=== PATIENT | male | born 1970 | race African-American/Black ===

== ENCOUNTER 2019-12-07 15:42 | Inpatient (IN) | payer OTHER ==
[~2019-12-07] VITALS: Ht 198.1 cm; Wt 161.5 kg
--- NOTE | ~2019-12-07 | HC ---
[facility] [place] [address] CONSULTATION Name: TERRIE GRACIA Room #: 448-P ADM IN M.R.#: [id number] Admission: 12/07/19 Attend Phys: Doug Kuhn MD Discharge: Date of : 70 Report #: [id number] THIS REPORT FOR: cc: JOANNE - Sylvia family physician/PCP JOANNE - Sylvia family physician/PCP Tomeka Cooper MD ~ CC: [facility] physician/PCP Doug Kuhn DATE OF SERVICE: 12/14/2019 RENAL CONSULTATION REASON FOR CONSULTATION: Acute kidney injury. REASON FOR PRESENTATION: Bilateral lower extremity swelling and drainage. HISTORY OF PRESENT ILLNESS: This is a 49-year-old who denies any previous knowledge of any medical issues. He does not see any physicians. He presented with increasing bilateral lower extremity swelling, foul smelling discharge. He has not been seen for this before. He denies any prior treatment. He has a normal creatinine on presentation with a creatinine value of 0.9. He received an angiogram on the , a venogram on the . This has resulted in a significant contrast exposure with the creatinine peaking at 2.2 mandating a Nephrology consultation. No UA is available. PAST MEDICAL HISTORY: He denies any prior medical history. PAST SURGICAL HISTORY: He denies any. FAMILY HISTORY: No known chronic kidney disease. ALLERGIES: None. SOCIAL HISTORY: He lives with his . No drug or alcohol abuse. MEDICATIONS: None. REVIEW OF SYSTEMS: GENERAL: No fever or chills. CARDIOVASCULAR: No chest pain or palpitation. PULMONARY: No cough or hemoptysis. GASTROINTESTINAL: No nausea or vomiting. GENITOURINARY: No frequency, no urgency. MUSCULOSKELETAL: As per the history of present illness. NEUROLOGICAL: No headache, no dizziness. [facility] [address] [place] [address] CONSULTATION Name: TERRIE GRACIA Phoebe Room #: 448-P [facility] IN .R.#: [id number] Admission: 12/07/19 Attend Phys: Doug Kuhn MD Discharge: Date of : 70 Report #: [id number] SKIN: As per the history of present illness. PHYSICAL EXAMINATION: VITAL SIGNS: Temperature 37.1, pulse rate is 80, blood pressure is 146/93. HEAD AND NECK: No jugular venous distention, no bruit, no thyromegaly. CHEST: Clear to auscultation bilaterally. CARDIOVASCULAR: No rub detected. ABDOMEN: Soft, nontender. LOWER EXTREMITIES: Extensive bilateral lower extremity lymphedema. Dressing applied bilaterally. I did not expose his dressing. LABORATORY VALUES: Sodium , potassium 4, BUN of 11, creatinine of 2.2. White blood cell count 5.0, hemoglobin 9.2, platelets 316. ASSESSMENT, IMPRESSION AND PLAN: 1. Acute kidney injury due to contrast exposure. 2. Bilateral lower extremity cellulitis. 3. The patient's creatinine had stabilized around 2.2. I am hoping to start to see some improvement in his renal function in the next day or so. 4. Avoid further contrast. 5. Avoid nephrotoxins. 6. Adjust medications to the current GFR. 7. Currently, the patient is followed by ID, wound care. Continue with the wound care and antibiotic accordingly. By: 0911 0930 Tomeka Cooper MD /nt
[2019-12-07 15:51] VITALS: BP 142/86
[2019-12-07 17:43] LABS: HEMATOCRIT 28.5 % (42.0-52.0); HEMOGLOBIN 9.7 gm/dL (14.0-18.0); MCH 30.3 pg (26.0-34.0); MCHC 34.2 g/dL (28.0-37.0); MCV 88.6 fL (80.0-100.0); PLATELET COUNT 272 thou/uL (150-400); RBC 3.22 mil/uL (4.50-6.00); RDW 15.8 % (10.5-14.5); WBC 4.5 thou/uL (4.0-11.0)
--- NOTE | 2019-12-07 17:46 | NUR ---
VASCULAR ACCESS CONSULTED FOR MIDLINE. PT'S HISTORY OBTAINED. DISCUSSED BENEFITS AND RISK WITH PT, VERBALIZED UNDERSTANDING.GAVE VERBAL CONSENT. KRYS BRACHIAL WAS WIDELY PATENET WITH USG. 4FR POWER MIDLINE TRIMMED TO 12CM INSERTED TO 0CM. LABS OBTAINED.PT TOLERATED WELL. RELEASED FOR IMMEDIATE USE PER PROTOCOL.
[2019-12-07 17:58] LABS: CALCIUM 7.7 mg/dL (8.5-10.1); CREATININE 0.9 mg/dL (0.7-1.3); POTASSIUM 3.4 mmol/L (3.5-5.1)
[2019-12-07 18:03] LABS: TOTAL BILIRUBIN 0.6 mg/dL (0.2-1.0); TOTAL PROTEIN 7.7 g/dL (6.4-8.2)
[2019-12-07 18:26] LABS: ABSOLUTE NEUTROPHILS 3.3 thou/uL (1.4-8.2)
--- NOTE | 2019-12-07 20:09 | NUR ---
FIRST ATTEMPT AT REPORT CALLED
[2019-12-07 20:38] VITALS: BP 132/95
[2019-12-07 21:01] VITALS: BP 121/78
[2019-12-07 21:15] VITALS: BP 129/89
[2019-12-08 03:20] LABS: HEMATOCRIT 31.2 % (42.0-52.0); HEMOGLOBIN 10.2 gm/dL (14.0-18.0); MCH 29.3 pg (26.0-34.0); MCHC 32.6 g/dL (28.0-37.0); PLATELET COUNT 288 thou/uL (150-400); RBC 3.47 mil/uL (4.50-6.00); WBC 4.6 thou/uL (4.0-11.0)
[2019-12-08 03:41] LABS: INR 1.1; PROTIME 11.6 Seconds (9.3-11.4)
[2019-12-08 03:47] LABS: ALBUMIN 1.9 g/dL (3.4-5.0); CALCIUM 7.3 mg/dL (8.5-10.1); CREATININE 1.1 mg/dL (0.7-1.3); MAGNESIUM 1.8 mg/dL (1.8-2.4); POTASSIUM 3.2 mmol/L (3.5-5.1); TOTAL BILIRUBIN 0.8 mg/dL (0.2-1.0); TOTAL PROTEIN 7.5 g/dL (6.4-8.2)
[2019-12-08 03:49] LABS: CHOLESTEROL 86 mg/dL (<200); HDL CHOLESTEROL 26 mg/dL (>40); LDL CHOLESTEROL 49 mg/dL (<100); TC:HDL 3.3 Ratio (Not establshd); TRIGLYCERIDE 56 mg/dL (<150); VLDL 11 mg/dL (<40)
[2019-12-08 04:37] LABS: SERUM ASSESSMENT Clear
[2019-12-08 05:08] LABS: ABSOLUTE NEUTROPHILS 3.3 thou/uL (1.4-8.2); PLATELET ESTIMATE NORMAL
[2019-12-08 08:10] VITALS: BP 117/79
--- NOTE | 2019-12-08 08:18 | NUR ---
PATIENT ARRIVED ON UNIT AT 2100 VIA CART FROM ED ACCOMPANIED BY ED CHARLINE. PATIENT ALERT AND ORIENTED X4. PATIENT HAS LARGE WOUND ON LLE AND A VERY LARGE ONE ON THE RLE. BOTH HAVE A VERY FOUL SMELL. BOTH HAS A THICK YELLOW DRAINAGE. WOUNDS CLEANED, PICTURED AND DRESSED. BOTH LOWER EXT EDEMATOUS. MIDLINE KRYS. DENIES PAIN. SLEPT OFF AND ON DURING NIGHT.
[2019-12-08 10:12] LABS: % SATURATION 14 % (20-39); IRON 23 ug/dL (65-175); TIBC 168 ug/dL (250-450)
[2019-12-08 10:14] LABS: FOLIC ACID 3.5 ng/mL (8.6-58.9)
--- NOTE | 2019-12-08 11:02 | NUR ---
ORDERS FOR EVAL AND TREAT. Pt HAD JUST GOTTEN DONE WITH O.T. EVAL AND O.T. SIGNING OFF ON Pt. OBSERVED Pt STAND AND AMBULATE WITHOUT DIFFICULTY. Pt DECLINING A FORMAL P.T. EVAL BUT APPEARS SAFE. Pt MIGHT HAVE FURTHER SURGICAL WORK ON HIS WOUNDS. WILL BE AVAILABLE TO COME BACK AND SEE IF RE-ORDERED AND Pt HAVING MORE DIFFICULTY WITH MOBILITY
--- NOTE | 2019-12-08 16:34 | NUR ---
ASSESSMENT:CM REVIEWED CHART AND MET WITH PATIENT AT THE BEDSIDE. PT IS ALERT AND ORIENTED X4. PT REPORTS THAT HE LIVES IN A HOUSE WITH HIS FIANCE. PT REPORTS TWO STEPS TO ENTER AND NO STEPS ONCE INSIDE. PT REPORTS HE NORMALLY IS ABLE TO AMBULATE INDEPENDENTLY. PT REPORTS THAT HE HAS NO INSURANCE. 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 CM WILL PROVIDE PATIENT WITH A SAFETY NET PACKET. PT WAS ADMITTED WITH CELLULITIS. WOUND CARE AND GENERAL SURGERY CONSULTED FOR POSSIBLE I&D. PT REPORTS HE HAS NO HAD HH IN THE PAST OR BEEN TO SNF. CM WILL CONTINUE TO FOLLOW REGARDING FURTHER PLANS.
[2019-12-08 16:50] VITALS: BP 106/70
--- NOTE | 2019-12-08 18:01 | NUR ---
PT IS AOX4, VSS, DRESSING APPLIED ORDERED TO BLE. PT HAS A FOUL SMELL COMING FROM WOUNDS. PT DENIES PAIN, RUE MIDLINE IS PATENT. PT UP AD CAITLYN, URINAL IN REACH. USES CALL LIGHT APPROPRIATELY. WILL CONTINUE TO MONITOR.
--- NOTE | 2019-12-08 18:03 | NUR ---
PT A&OX4 CALM DEMEANER, TOLERATES MEDICATION APPROPRIATE, REGULAR DIET, PT IS CONTINENT TO BOTH BOWEL AND BLADDER. PT AMBULATES TOLERATED PATIENT IS UP AND ADLIB. LARGE NECROTIC WOUNDS BILATERAL LOWER EXTREMETIES, WITH YELLOW DISCHARGE. DAIKENS SOLUTION ADMINISTERED OVER NECROTIC/CELLULITIS WOUND ON BOTH EXTREMITIES AND DRESSED.
[2019-12-08 21:40] VITALS: BP 104/68
[2019-12-09 04:22] VITALS: BP 135/95
[2019-12-09 06:11] LABS: HEMOGLOBIN 9.5 gm/dL (14.0-18.0); MCH 29.6 pg (26.0-34.0); MCHC 32.6 g/dL (28.0-37.0); MCV 90.8 fL (80.0-100.0); RBC 3.19 mil/uL (4.50-6.00); RDW 16.1 % (10.5-14.5)
[2019-12-09 07:08] LABS: GLYCOHEMOGLOBIN (HGB A1C) 6.1 % (4.8-5.6)
--- NOTE | 2019-12-09 08:03 | NUR ---
ASSUMED PT CARE AT 1900. PT A&OX4, UP AD CAITLYN IN ROOM. NO COMPLAINTS OF PAIN. ANTIBIOTICS INFUSING PER ORDER. WOUND DRESSING CHANGED, WOUNDS WEEP QUITE A BIT. CLEAR LIQUIDS SINCE MIDNIGHT, THEN NPO SINCE 4AM PER ORDER. ULTRASOUND COMPLETED LAST NIGHT. ANTICIPATING SX TODAY.
[2019-12-09 09:06] VITALS: BP 123/71
--- NOTE | 2019-12-09 09:11 | NUR ---
Assess due to RD consult received for instruction. Admit with severe PVD, lower extremity cellulitis. Hx etoh abuse, obesity. Folate level depleted and started on supplementation. A1C borderline elevated at 6.1, no hx diabetes. Pt states good appetite and eats high protein food sources. Reviewed some basic healthy dietary concepts to promote wt loss and pt is receptive to nutrition education materials. Will also start on Toan bid. Severe protein calorie malnutrition indicated by physcian: RD defer. Consider low nutrition risk with nutrition education completed and toan started.
--- NOTE | 2019-12-09 11:41 | NUR ---
VASCULAR ACCESS CALLED TO ASSESS ML, LEAKING AT SITE ENRIQUE ML REMOVED . NEW MIDLINE INSERTED PER PT REQUEST. ENRIQUE BASILIC WIDELT PATENT. 4FR POWER ML TRIMMED TO 15CM INSERTED TO 0CM WITH BRISK BR. ML RELEASED FOR IMMEDIATE USE TO JOANN MAI. PT TOLERATED WELL
--- NOTE | 2019-12-09 16:08 | HC ---
[facility] [place] [address] CONSULTATION Name: TERRIE GRACIA Room #: 448-P ADM IN M.R.#: [id number] Admission: 12/07/19 Attend Phys: Doug Kuhn MD Discharge: Date of : 70 Report #: [id number] THIS REPORT FOR: cc: JOANNE - No family physician/PCP JOANNE - No family physician/PCP Jeanmarie Noguera MD ~ CC: [facility] physician/PCP Doug Kuhn DATE OF SERVICE: 12/08/2019 WOUND CARE CONSULTATION PERSONAL PHYSICIAN: None. CHIEF COMPLAINT: Bilateral lower extremity swelling and cellulitis. HISTORY OF PRESENT ILLNESS: This is a 49-year-old black male with essentially no previous medical care who presented through the Emergency Department last night for increasing pain, swelling of his bilateral lower extremities. The patient has also noticed a foul odor over the past several weeks. The patient states that he does not seek medical care on a regular basis and has no idea whether he has any history of diabetes or cardiac disease. The patient states his legs have been swollen for months, but just in the past several weeks he started having a foul smell and increased amount of brownish drainage. The patient denies any other associated wounds. The patient denies any other wounds he could not heal on his own in the past. The patient states the pain is a dull ache without radiation, worse with ambulation and swelling, better with elevation and rest. PAST MEDICAL HISTORY: Unknown because the patient has not sought any medical care for years. CURRENT MEDICATIONS: None. DRUG ALLERGIES: None. SOCIAL HISTORY: The patient does not smoke. Drinks alcohol supposedly significantly every day. Does not do drugs. FAMILY HISTORY: Not pertinent to current medical condition. REVIEW OF SYSTEMS: CONSTITUTIONAL: The patient denies fevers or chills. NEUROLOGIC: The patient denies numbness, tingling or weakness in arms or legs. EYES: No complaints. [facility] [address] [place] [address] CONSULTATION Name: TERRIE GRACIA Room #: 448-P [facility] IN [facility].#: [id number] Admission: 12/07/19 Attend Phys: Doug Kuhn MD Discharge: Date of : 70 Report #: [id number] ENT: No complaints. CARDIAC: The patient has chronic lower extremity edema, worse in the past several weeks with no chest pain or palpitations. RESPIRATORY: The patient denies shortness of breath, cough or wheezes. GASTROINTESTINAL: The patient denies nausea, vomiting, abdominal pain. GENITOURINARY: The patient denies urgency or frequency. MUSCULOSKELETAL: No complaints. SKIN: The patient has ____ stasis dermatitis on bilateral lower extremities. PHYSICAL EXAMINATION: VITAL SIGNS: Temperature 38.2, pulse 104, respirations 22, BP 117/79. GENERAL: This is an alert and oriented x 3, morbidly obese black male who is in no obvious distress. HEENT: Normocephalic, atraumatic. Mucous membranes are somewhat dry. Pupils are round. Sclerae white. NECK: Without JVD. LUNGS: Clear. HEART: Regular. ABDOMEN: Obese, soft, nontender. EXTREMITIES: The patient has 4+ edema bilateral lower extremities with distal faint pulses. The patient has significant hyperkeratosis on the right medial lower extremity from the knee down to the ankle with near circumferential hyperkeratosis around the ankle. There is a foul-smell brownish drainage coming from the hyperkeratotic region, the rest of the leg has venous stasis dermatitis changes. On the left lower extremity, there is a pretibial hyperkeratotic region with also similar brown, foul-smelling drainage. There is increased erythema and warmth to bilateral lower extremities. Bilateral heels are intact. NEUROLOGIC: Cranial nerves 2-12 are grossly intact. Motor and sensory grossly intact. There are no deep ulcerations noted on either leg. LABORATORY VALUES: White count 4.6, hemoglobin 10.2. Sed rate 62. Albumin 1.9. Chest x-ray shows no acute abnormalities. WOUND CARE COURSE: I spoke at length with the patient and stated at this point in time, we are going to talk to the general surgeon about take him to the operating room and doing ____ debridement of both lower extremities to clean up the hyperkeratosis on both lower extremities. We will continue with IV antibiotics as already previously started. We will check arterial Dopplers of bilateral lower extremities to check for adequate blood flow for healing. We will use Dakin's solution on moist Kerlix to wrap the patient's bilateral ____ ABD, Kerlix and John and patient elevate his legs as much as possible. We will utilize physical and occupational therapy for strengthening. We will make sure the patient to maximize his oral protein supplementation for healing. At this time, we will continue all other current medications. IMPRESSION: [facility] [address] [place] [address] CONSULTATION Name: TERRIE GRACIA Room #: 448-P [facility] IN M.R.#: [id number] Admission: 12/07/19 Attend Phys: Doug Kuhn MD Discharge: Date of : 70 Report #: [id number] 1. Chronic bilateral lower extremity edema with what appears to be a mixture of venous insufficiency and lymphedema with associated cellulitis. 2. Significant ____ bilateral skin lesions with cellulitis. 3. Morbid obesity. 4. Severe protein-calorie malnutrition, albumin 1.9. 5. Generalized debility. PLAN: Described in length as above. I appreciate ability to consult. We will continue to follow the patient. <ELECTRONICALLY SIGNED> By: Jeanmarie Noguera MD 12/09/19 1608 0926 1141 Jeanmarie Noguera MD /nt
--- NOTE | 2019-12-09 17:14 | NUR ---
Assumed patient care at 0715. Patient NPO all night as he was to have I&D with Dr Holland. It was decided that patient needed Arteriogram as well so this was done today. Patient arrived back on Unit at 1515. Pressure dressing is clean, dry and intact to left groin. Patient denies pain. Patient will have a "Sharp Lateral Debridement of Bilateral Lower Extremity Wounds" with Dr Holland tomorrow; to be NPO after midnight. Patient is to have another Arteriogram tomorrow as well. Cellulitis to bilateral lower extremities are open, weeping. Dressings are constantly wet. Patient is alert and oriented x's 4. He is up ad tawanna. He has had no adverse reactions to the IV Antibiotic Therapy. Vital signs stable. Will report to on-coming nurse.
[2019-12-10] VITALS (7 sets, daily range): BP systolic 109–180; BP diastolic 60–90
--- NOTE | 2019-12-10 04:47 | NUR ---
ASSUMED PT CARE AT 1900. PT IS A&OX4. NPO SINCE MIDNIGHT. ANTIBIOTICS INFUSING PER ORDER. UAL TO THE TOILET. NO C/O PAIN. ANTICPIATING DEBRIDEMENT TODAY. DRESSING CHANGE AROUND 1999, WILL ASSESS IF NEEDING CHANGE AGAIN. NO COMPLAINTS AT THIS TIME.
--- NOTE | 2019-12-10 18:01 | NUR ---
PT IS AOX4, VSS, DENIES PAIN AT THIS TIME. PT WENT FOR PROCEDURE I&D OF BLE. PT ALSO RECEIVED DRESSING ON RIGHT JUGULAR AFTER VENOUS PROCEDURE. PT DRESSING IS CDI. PT WAS TOLD TO LAID DOWN FOR 4O MINUTES IN BED. PT USES URINAL AT BEDSIDE AND CALLS APPROPRIATLY. PT HAS LUE MIDLINE WITH IV FLUIDS RUNNING. FALL PRECAUTIONS IN PLACE, WILL CONTINUE TO MONITOR.
--- NOTE | 2019-12-10 20:09 | NUR ---
1900 ASSUMED CARE OF PT AFTER BEDSIDE REPORT. 1999 BASELINE ASSESSMENT COMPLETED, PT DENIES PAIN AT THIS TIME, DRESSINGS TO BLE C/D/I, DRESSING TO R NECK C/D/I, NO COMPLAINTS AT THIS TIME, CAP REFILL TO BLE <3 SEC, WILL CONTINUE TO MONITOR
[2019-12-11 04:54] VITALS: BP 128/74
[2019-12-11 05:59] LABS: HEMOGLOBIN 9.4 gm/dL (14.0-18.0); MCH 29.4 pg (26.0-34.0); MCHC 32.3 g/dL (28.0-37.0); RBC 3.19 mil/uL (4.50-6.00); RDW 16.1 % (10.5-14.5); WBC 4.6 thou/uL (4.0-11.0)
[2019-12-11 06:04] LABS: CALCIUM 7.4 mg/dL (8.5-10.1); CREATININE 0.9 mg/dL (0.7-1.3); POTASSIUM 3.4 mmol/L (3.5-5.1)
[2019-12-11 08:05] VITALS: BP 93/54
[2019-12-11 09:45] VITALS: BP 93/54
--- NOTE | 2019-12-11 13:37 | NUR ---
Chart reviewed and case discussed with the care team. I/D yesterday. Pt with increased edema. Continues on iv vanc/zosyn. Sign other can do dressing change at dc. Awaiting decision about antibiotics. Pt does not have insurance for f/u care. Saftey net packet provided. Will need to vouch scripts at dc or do special request for outpt/or home IV ATB if needed. No weekend dc anticipated.
[2019-12-11 15:25] VITALS: BP 105/61
--- NOTE | 2019-12-11 17:08 | PATH ---
[facility] [place] [address] PATHOLOGY RPT PROCEDURE Name: JEFF LOO Room #: 448-P ADM IN M.R.#: [id number] Admission: 12/07/19 Date of : 70 Discharge: Report #: [id number] Path Case #: [id number] [facility] Accession Number: [id number] . 01 Material submitted: . PART A: leg - #1 RIGHT LOWER LEG TISSUE. Modifiers: right, lower PART B: leg - #2 RIGHT LOWER LEG TISSUE. Modifiers: right, lower PART C: leg - LEFT LOWER LEG TISSUE. Modifiers: left, lower . 01 Clinical history: . Cellulitis bilateral legs. . 02 Diagnosis: A. Skin, right lower leg tissue, debridement: - Superficial fragments of keratinous epithelium showing changes compatible with verrucoid keratosis. - Intact fragments showing marked acute inflammation along with pseudoepitheliomatous changes. - Marked acute inflammation, fibrinoid degeneration as well as bacterial aggregates present. . B. Skin, right lower leg tissue R/O cancer, biopsy: - Pseudoepitheliomatous changes; negative for malignancy. - Marked hyperkeratosis along with verrucoid keratosis. - Moderate to marked acute inflammation, compatible with the vicinity of a ulcer. . C. Skin, left lower leg tissue, debridement: - - Pseudoepitheliomatous changes; negative for malignancy. - Marked hyperkeratosis along with verrucoid keratosis. - Moderate to marked acute inflammation, compatible with the vicinity of a ulcer. (IUV:lyudmila; 12/11/2019) S 12/11/2019 1437 Local . 02 Electronically signed: . Marium Logan MD, Pathologist NPI- [id number] . 01 Gross description: . A. Received in formalin labeled "Jeff Loo, right lower leg tissue" is a 3.1 x 2.0 x 1.2 cm aggregate of youssef-caraballo friable soft tissue. The specimen is submitted entirely in cassette A1. . B. Received in formalin labeled "Jeff Loo, right lower leg tissue #2 rule out cancer" is an ellipse of youssef-brown friable skin and underlying soft tissue measuring 3.6 x 1.7 x 0.5 cm. The margin [place] [address] PATHOLOGY RPT PROCEDURE Name: JEFF LOO W Room #: 448-P [facility] IN M.R.#: [id number] Admission: 12/07/19 Date of : 70 Discharge: Report #: [id number] Path Case #: [id number] specimen is serially sectioned and submitted entirely in cassettes B1-B3. . C. Received in formalin labeled "Jeff Loo, left lower leg tissue #3" is a fragment of irregular youssef-brown friable tissue measuring 2.5 x 2.0 x 1.0 cm. The specimen is serially sectioned and submitted entirely in cassettes C1-C2. ([facility]; 12/10/2019) [facility] 12/10/2019 1923 Local . 02 Pathologist provided ICD-10: L08.9, L98.8, L57.0 . 02 CPT . 041889, [id number], 671800 Specimen Comment: A courtesy copy of this report has been sent to [phone], [phone] Specimen Comment: [id number] Specimen Comment: Report sent to / DR DALTON Performed at: 01 [facility] [address] [place] [address] [address], [place] [id number] MD Antwan Trinidad MD Phone: [phone] Performed at: [address] [id number] MD Marium Logan MD Phone: [phone]
--- NOTE | 2019-12-11 18:08 | NUR ---
ASSUMED CARE OF PATIENT AT SHIFT CHANGE. ASSESSMENT CHARTED. MEDS GIVEN PER JUL. VSS. PATIENT IS A&OX4 AND PLEASANT. PATIENT HAD D&C YESTERDAY AND HAS MINIMAL DRAINAGE AT SITE. CALLED AND ORDERS REMAIN THE SAME. WOUND CARE PERFORMED BY THIS NURSE. ABX TX CONTINUED ORDERED. NO OTHER NEEDS VOICED. FALL PRECAUTIONS IN PLACE. WILL CONTINUE TO MONITOR
[2019-12-11 20:10] VITALS: BP 128/78
[2019-12-12 06:24] VITALS: BP 112/72
[2019-12-12 09:18] VITALS: BP 123/80
[2019-12-12 16:22] VITALS: BP 124/72
--- NOTE | 2019-12-12 18:35 | NUR ---
Assumed pt care at 7am. Pt in bed most of the time but able to repositioned self as needed.Assessment completed.vss.Pt has good appetite and tolerated meds.Dr Barbosa and Phil here,order noted.Pt has adequate u/o.Fall bundle in place.No verbal c/o at present.Will continue to monitor.
[2019-12-12 20:53] VITALS: BP 132/90
--- NOTE | 2019-12-13 04:30 | NUR ---
RECIEVED CARE OF THIS PATIENT AT 1900. PATIENT ALERT AND ORIENTED X4. DRESSING ON [place] LOWER EXT CHANGED. WOUNDS CLEANED WITH NS AND DAKINS WET TO DRY DRESSING APPLIED WITH ABD'S AND GAUZE. SOME SEROSANGUINEOUS DRAINAGE NOTED ON BOTH OLD DRESSINGS. WOUNDS HAVE A FOUL ORDER. PATIENT UP AD CAITLYN TO BATHROOM BUT USES URINAL ALSO. SLEPT OFF AND ON DURING NIGHT.
[2019-12-13 06:21] LABS: HEMATOCRIT 28.1 % (42.0-52.0); HEMOGLOBIN 9.2 gm/dL (14.0-18.0); MCH 29.5 pg (26.0-34.0); MCHC 32.7 g/dL (28.0-37.0); MCV 90.2 fL (80.0-100.0); RBC 3.12 mil/uL (4.50-6.00); RDW 16.2 % (10.5-14.5)
[2019-12-13 06:34] LABS: CALCIUM 7.7 mg/dL (8.5-10.1); POTASSIUM 3.9 mmol/L (3.5-5.1)
[2019-12-13 06:37] LABS: CREATININE 2.2 mg/dL (0.7-1.3)
[2019-12-13 08:15] VITALS: BP 128/78
[2019-12-13 09:33] VITALS: BP 128/78
--- NOTE | 2019-12-13 10:57 | NUR ---
ASSUMED CARE OF PATIENT AT SHIFT CHANGE. ASSESSMENT CHARTED. MEDICATION GIVEN PER MAR. VSS. DENIES PAIN. PATIENT GETS UP INDEPENDENTLY BUT USES URINAL TO VOID. PATIENT HAD BREAKFAST AND TOLERATED WELL. WOUND CARE BID, WOUNDS CURRENTLY WEEPING SEROSANGUENOUS DRAINAGE. PATIENT INSTRUCTED TO ELEVATE LEGS. VOICES NO OTHER NEEDS AT THIS TIME. WILL CONTINUE TO MONITOR.
--- NOTE | 2019-12-13 14:48 | NUR ---
PERFORMED WOUND CARE TODAY AFTERNOON. PATIENT TOLERATED WELL; C/O PAIN AT 10. PRN PAIN MED GIVEN. DRESSING CHANGED ORDERED. BLE ELEVATED. NO DRAINAGE AT THIS TIME. ABX ZOSYN INFUSING AT THIS TIME. PATIENT VOICES NO OTHER NEEDS. WILL CONTINUE TO MONITOR.
[2019-12-13 16:35] VITALS: BP 112/66
[2019-12-13 20:00] VITALS: BP 112/77
--- NOTE | 2019-12-14 00:39 | NUR ---
PT AOX4. PT DENIES PAIN AND SOB. PT HAS PRN IV MORPHINE Q4HR AND PRN PO APAP AVAILABLE. PT AMBULATING TO BATHROOM WITH STANBY ASSIST, CONTINUES TO USE BEDSIDE URINAL. PT TOLERATING PO INTAKE OF FLUIDS AND REGULAR DIET. BLE DRESSINGS INTACT, CHANGED AT 1444. PT REQUESTING TO CHANGE DRESSINGS AT A LATER TIME. ENCOURAGED PT TO NOTIFY STAFF FOR ALL NEEDS. CALL LIGHT WITHIN REACH, BED ALARM ON, BED IN LOWEST POSITION. WILL CONTINUE TO MONITOR.
[2019-12-14 05:14] VITALS: BP 125/72
[2019-12-14 06:12] LABS: CALCIUM 7.9 mg/dL (8.5-10.1); CREATININE 2.2 mg/dL (0.7-1.3)
[2019-12-14 08:27] VITALS: BP 146/93
--- NOTE | 2019-12-14 09:00 | NUR ---
discussed with md, possible dc today, if cleared by consults and id. pt cont on iv abx and wound care. md to discuss with consulted physicians. will cont following as needed for dc needs. mathieu is pat and will need assistance with rx at dc and if need iv abx, will need to see about charisse giuliano or going to outpt iv infusion center. will cont following as needed for dc needs.
--- NOTE | 2019-12-14 09:07 | HC ---
[facility] [place] [address] CONSULTATION Name: TERRIE GRACIA Room #: 448-P ADM IN M.R.#: [id number] Admission: 12/07/19 Attend Phys: Doug Kuhn MD Discharge: Date of : 70 Report #: [id number] THIS REPORT FOR: cc: JOANNE - No family physician/PCP JOANNE - Sylvia family physician/PCP Herrera Holland MD ~ CC: JOANNE physician/PCP Doug Kuhn DATE OF SERVICE: 12/08/2019 CONSULTING PHYSICIAN: Dr. Holland. REASON FOR CONSULTATION: Bilateral lower extremity wounds. ASSESSMENT: 1. Bilateral lower extremity wounds. 2. Sepsis. RECOMMENDATIONS: 1. Thank you very much for this consultation. I will follow along. 2. Planning for ultrasonic debridement in the operating room tomorrow morning. N.p.o. at midnight. The risks, benefits and alternatives of the procedure were discussed with the patient. 3. A duplex ultrasound of bilateral lower extremities, arterial and venous pending. HISTORY OF PRESENT ILLNESS: The patient is a 49-year-old male who has had worsening bilateral lower extremity wounds developed over the course of the last month. The patient was in the ER recently. His wounds have become foul smelling and worsening. The patient denies history of previous surgeries on his extremities. He denies any cramping in his calves. He denies history of blood clots. PAST MEDICAL HISTORY: Denies. PAST SURGICAL HISTORY: Denies. FAMILY HISTORY: Diabetes and hypertension. SOCIAL HISTORY: Occasional alcohol use. No tobacco or recreational drug use. REVIEW OF SYSTEMS: CONSTITUTIONAL: No fever. No chills. HEENT: Denies blurring of vision, double vision, headaches, hearing loss, sinus [facility] [address] [place] [address] CONSULTATION Name: TERRIE GRACIA Room #: 448-P [facility] IN .R.#: [id number] Admission: 12/07/19 Attend Phys: Doug Kuhn MD Discharge: Date of : 70 Report #: [id number] drainage or sore throat. Denies blurring of vision, double vision, headaches, hearing loss, sinus drainage or sore throat. CARDIOVASCULAR: Denies chest pain, palpitations, orthopnea or paroxysmal nocturnal dyspnea. RESPIRATORY: Denies cough, wheezing, hemoptysis, or shortness of air. GASTROINTESTINAL: No nausea. No vomiting. No diarrhea. No Heartburn. No nausea. No vomiting. No diarrhea. No Heartburn. GENITOURINARY: Denies dysuria or hematuria or kidney stones. No urinary frequency, urgency or incontinence. Denies dysuria or hematuria or kidney stones. No urinary frequency, urgency or incontinence. MUSCULOSKELETAL: No joint pain. No muscle pain. NEUROLOGICAL: Denies tremor, stroke or seizure. Denies tremor, stroke or seizure. HEMATOLOGIC / LYMPHATICS: Denies easy bruising, easy bleeding or enlarged lymph nodes. INTEGUMENTARY: Please see above and below. ENDOCRINE: No heat or cold intolerance PSYCHIATRIC: Denies depression, anxiety, or schizophrenia. PHYSICAL EXAMINATION: VITAL SIGNS: Temperature 37.6, heart rate 112, respiratory rate 18, blood pressure 129/89, pulse ox 95%. GENERAL: No apparent distress, alert and oriented x3. HEENT: PERRLA, EOMI, MMM, NCAT NECK: Supple. No LAD CARDIOVASCULAR: Regular rhythm and rate. Hemodynamically stable. Normal capillary refill. Regular rhythm and rate. Hemodynamically stable. Normal capillary refill. PULMONARY: Nonlabored. Clear to auscultation bilaterally ABDOMEN: Soft, nontender to palpation, no guarding, no rigidity, no rebound tenderness, no hernias. EXTREMITIES: Large wound overlying the anterior medial aspect of the right lower extremity with severe soft tissue destruction and overlying debris that appears nonviable. Large wound overlying the left medial malleolus as well. Significant amount of soft tissue destruction and overlying debris as well. SKIN: Please see above and below. PSYCHIATRIC: Normal mood and affect Normal mood and affect NEUROLOGICAL: Grossly intact. CN II-XII grossly intact. MUSCULOSKELETAL: 5/5 strength in upper extremities and lower extremities bilaterally LYMPHATICS: No cervical, inguinal, or supraclavicular lymphadenopathy. [address] [place] [address] [address] CONSULTATION Name: BASILTERRIE Room #: 448-P [facility] IN M.R.#: [id number] Admission: 12/07/19 Attend Phys: Doug Kuhn MD Discharge: Date of : 70 Report #: [id number] LABORATORY DATA: White blood count 4.6, hemoglobin 10.2, platelets 288. INR 1.1. Sodium 130, potassium 3.2, creatinine 1.1. <ELECTRONICALLY SIGNED> By: Herrera Holland MD 12/14/19 [id number] Herrera Holland MD /nt
[2019-12-14 11:17] VITALS: BP 115/44
[2019-12-14 15:14] VITALS: BP 126/73
--- NOTE | 2019-12-14 17:21 | NUR ---
ASSUMED PT CARE AT 0700. PT ALERT X ORIENTED X 4. ON ROOM AIR. IV LEFT UPPERARM MIDLINE. PT ON REGULAR DIET AND TOLERATING WELL. PT USING URINALS. NO C/O PAIN. WOUND DRESSING CHANGED BY THE WOUND NURSE. CALL LIGHT IN REACH. BED IN LOW POSITION. FALL PRECT IN PLACE. WILL CONT TO MONITOR.
[2019-12-14 19:33] VITALS: BP 124/76
--- NOTE | 2019-12-15 04:20 | NUR ---
ASSUMED PT CARE AT 1900. PT IS A&OX4. STANDBY TO THE TOILET. NO COMLPAINTS OF PAIN. DRESSING CHANGE TO BE DONE BEFORE SHIFT CHANGE. CURRENT DRESSING D/C/I. ANTIBIOTICS INFUSING PER ORDER. NO SIGNIFICANT CHANGES AT THIS TIME, WILL CONTINUE TO MONITOR.
[2019-12-15 04:58] VITALS: BP 136/91
[2019-12-15 06:28] LABS: ALBUMIN 1.8 g/dL (3.4-5.0); CALCIUM 7.5 mg/dL (8.5-10.1); CREATININE 2.2 mg/dL (0.7-1.3)
[2019-12-15 07:40] VITALS: BP 145/85
[2019-12-15 10:16] LABS: URINE BILIRUBIN NEGATIVE (Negative); URINE BLOOD NEGATIVE (Negative); URINE CLARITY CLEAR; URINE COLOR YELLOW; URINE GLUCOSE-RANDOM* NEGATIVE (Negative); URINE KETONES NEGATIVE (Negative); URINE LEUKOCYTES NEGATIVE (Negative); URINE NITRITE NEGATIVE (Negative); URINE PROTEIN (DIPSTICK) NEGATIVE (Negative); URINE SPECIFIC GRAVITY <= 1.005 (1.005-1.035); URINE UROBILINOGEN 0.2 E.U./dl (0.2-1.0)
--- NOTE | 2019-12-15 14:14 | NUR ---
ON-GOING ASSESSMENT: CM REVIEWED CHART AND SPOKE WITH PATIENT. PTS CREATININE IS ELEVATED AND RENAL ULTRASOUND ORDERED TODAY. PER ID IT APPEARS PT WILL TRANSITION TO [facility] AT DISCHARGE. FOR WOUND CARE DR. MALONE STATES IF PATIENT IS ABLE HE CAN FOLLOW UP AT [facility] [phone]. CM INFORMED PATIENT SINCE HE HAS NO INSURANCE IT WILL LIKELY BE PRIVATE PAY AND PT STATES HE IS UNSURE HE CAN AFFORD THAT. CM SPOKE WITH PATIENT ABOUT POSSIBLY HH FOR A FEW [place] VISITS IF CM CAN FIND A HH TO AGREE. PT REQUEST TO TRY TO FIND A HH WHO WILL DO [place] VISITS. CM REACHED OUT TO [facility] WHO STATES THEY WILL REVIEW TO SEE IF THEY CAN DO 1-2 [place] VISITS. CM AWAITING FURTHER INPUT.
[2019-12-15 15:20] VITALS: BP 142/69
--- NOTE | 2019-12-15 17:15 | NUR ---
Assumed care of pt. at 0700. Patient is calm and experiencing no pain. Pt. was taken to ultrasound in the morning and had UA collected shortly after. Pt. received antibiotics.
[2019-12-15 19:49] VITALS: BP 123/68
--- NOTE | 2019-12-16 03:23 | NUR ---
RECIEVED CARE OF THIS PATIENT AT 1900. PATIENT ALERT AND ORIENTED X4. DRESSING ON BILATERAL LOWER EXT D/I. DENIES PAIN. SLEPT OFF AND ON DURING NIGHT.
[2019-12-16 08:37] VITALS: BP 115/76
--- NOTE | 2019-12-16 08:44 | NUR ---
Nutrition: Follow up for oral intake. Pt continues to do extremely well with PO intake and appetite. No new nutrition problems. Meal average = 92% per the last 5 days and 98% average in just the last 2 days alone. Has venous stasis ulcers to BLE w/ cellulitis. Wounds recently debrided on 12/09. Continues on folic acid and antibiotics. K+ and phos both WNL per 12/14 labs. Pt denied any new nutrition questions/concerns. Reviewed rationale for focusing on rich protein sources re: wounds. Identified protein sources, setting goal of 1-2 per meal. No additional interventions needed. Remains low nutrition risk.
[2019-12-16 08:50] LABS: CALCIUM 8.6 mg/dL (8.5-10.1); CREATININE 2.3 mg/dL (0.7-1.3); PHOSPHORUS 4.1 mg/dL (2.5-4.9); POTASSIUM 4.1 mmol/L (3.5-5.1)
--- NOTE | 2019-12-16 09:11 | NUR ---
ON-GOING ASSESSMENT: [facility] TO DO TWO [place] VISITS FOR PATIENT. CM NOTIFIED ATTENDING THAT SINCE PATIENT HAS NO INSURANCE [facility] CAN ONLY DO TWO [place] VISITS FOR HIM. PER ID NOTE PATIENT WILL SWITCH TO [facility] AT DISCHARGE. CM NOTIFIED ATTENDING CM WILL ATTEMPT TO VOUCHER MEDICATIONS AT TIME OF DISCHARGE. CM ALSO NOTIFIED BEDSIDE RN TO CALL CM WHEN SCRIPTS PRINTED SO CM COULD COSTE[facility] AT [facility].
--- NOTE | 2019-12-16 09:31 | NUR ---
Assumed care of pt. at 0700. Pt. is calm and cooperative and experiencing no pain. Pt. is hopeful to go home.
[2019-12-16] MEDS ORDERED: FOLIC ACID1 MG PO (11:42)
[2019-12-16] MEDS ORDERED: AUGMENTIN 875-1 EACH PO (11:42)
[2019-12-16] MEDS ORDERED: DAKIN'S473 ML IRRIG (11:42)
[2019-12-16 12:08] VITALS: BP 115/76
[2019-12-16 13:08] VITALS: BP 115/76
== END 2019-12-16 16:18 | disposition home health service (06) | DRG 853 ==
LOC: ER 15:42 → EROBS 18:18 → 4S 20:54
PROVIDERS: Emergency Medicine; Hospitalist; ADMIT Internal Medicine; ATTEND Internal Medicine
DX: A41.9 Sepsis, unspecified organism (principal); E43 Unspecified severe protein-calorie malnutrition; L03.116 Cellulitis of left lower limb; E87.1 Hypo-osmolality and hyponatremia; N17.9 Acute kidney failure, unspecified; L03.115 Cellulitis of right lower limb; Z68.41 Body mass index [BMI] 40.0-44.9, adult; E66.01 Morbid (severe) obesity due to excess calories; E88.09 Other disorders of plasma-protein metabolism, not elsewhere classified; I87.8 Other specified disorders of veins; E87.6 Hypokalemia; D63.8 Anemia in other chronic diseases classified elsewhere; L85.9 Epidermal thickening, unspecified; I73.9 Peripheral vascular disease, unspecified; T50.8X5A Adverse effect of diagnostic agents, initial encounter; Y92.89 Other specified places as the place of occurrence of the external cause; Z91.19 Patient's noncompliance with other medical treatment and regimen; Z79.899 Other long term (current) drug therapy; Z20.828 Contact with and (suspected) exposure to other viral communicable diseases
CPT/HCPCS: 10195; 27000; 50010; 50101; 50386; 57092; 57119; 57120; 62110; 62900; 70005